=== PATIENT | female | born 1995 | race Caucasian/White ===

== ENCOUNTER 2021-03-13 15:23 | Emergency (ER) | payer SELFPAY ==
[~2021-03-13] VITALS: Ht 162.6 cm; Wt 47.6 kg
[2021-03-13 15:59] VITALS: BP 125/88
[2021-03-13] MEDS ORDERED: FAMOTIDINE (20 MG) 20 MG TABLET ONE (16:29)
[2021-03-13] MEDS ORDERED: cetrizine 10 MG TABLET ONE (16:29)
[2021-03-13] MEDS ORDERED: predniSONE 20 MG TABLET PO ONE (16:30)
[2021-03-13] MEDS ORDERED: cetrizine 10 MG TABLET PO ONE (16:30)
[2021-03-13] MEDS ORDERED: FAMOTIDINE (20 MG) 20 MG TABLET PO ONE (16:30)
[2021-03-13] MEDS ORDERED: predniSONE 10 MG TABLET ONE (16:30)
[2021-03-13] MEDS ORDERED: PRED20TA PO (16:36)
[2021-03-13] MEDS ORDERED: FAMO-131 PO (16:36)
[2021-03-13] MEDS ORDERED: DIPH25CA83 PO (16:36)
--- NOTE | 2021-03-13 17:25 | NUR ---
PT RASHED HAVE SUBSIDED COMPARED TO WHEN SHE GOT HERE.
--- NOTE | 2021-03-13 17:26 | NUR ---
Patient discharged to home in stable condition. Written and verbal after care instructions given. Patient verbalizes understanding of instruction. Pt ambulatory with a steady gait
== END 2021-03-13 17:27 | disposition home or self-care (01) ==
LOC: ER 15:23
DX: L50.9 Urticaria, unspecified (principal); Z79.899 Other long term (current) drug therapy
CPT/HCPCS: 99284; J7512